=== PATIENT | male | born 1970 | race Caucasian/White ===

== ENCOUNTER 2025-01-23 15:44 | Inpatient (IN) | payer OTHER, SELFPAY ==
[2025-01-23] VITALS (7 sets, daily range): BP systolic 87–116; BP diastolic 51–81; BMI 27.7; BMI 27.5
--- NOTE | 2025-01-23 13:40 | ED.GENMED ---
History of Present Illness
General
Chief Complaint: Chest Pain
Time Seen by Provider: 01/23/25 13:37
History of Present Illness
History of Present Illness:
FOCUSED PAST MEDICAL HISTORY
- CAD, has had ND
REVIEW OF OLD RECORDS
- November 24, the patient was seen as a STEMI with stent placed in RCA and following day had stent placed in proximal LAD and EF at that time was 40%
Note:
CHIEF COMPLAINT(S)
Chest pain.
HISTORY OF PRESENT ILLNESS
The patient is a 54-year-old male with a past medical history significant for a myocardial infarction in 2014, during which stents were placed in the Right Coronary Artery (RCA) and Left Anterior Descending (LAD) artery. He presented today with the
onset of chest pain around 11:45 AM. The patient reports taking a nitrate at approximately 12:15 PM and lying down after administration. The first dose of nitrate did not alleviate symptoms, but the second dose provided significant relief. He
arrived at the hospital via ambulance and reports being pain-free at present. The patient did not experience diaphoresis but mentioned having a headache after nitrate administration. An initial Electrocardiogram (EKG) suggested a possible subtle
elevation in leads II and F, although these findings were deemed comparable to prior EKGs from March 2015. The EKG changes were not considered urgent enough for immediate intervention in the [employer] [facility]. Follow-up with cardiac enzymes and EKG is
planned if symptoms recur.
ADDITIONAL HISTORY OBTAINED FROM SOURCES OTHER THAN THE PATIENT
The patient arrived by ambulance, and EMS administered treatment before arrival, including aspirin.
EXTERNAL RECORDS REVIEWED
Review of EKGs from March 2015, which revealed consistent findings with no major changes when compared to the current presentation.
PHYSICAL EXAM
General: Alert, no acute distress. Very well-appearing
Skin: Warm, dry.
Head: Normocephalic, atraumatic.
Neck: Supple, trachea midline.
Eye, Ears, Nose, and Throat: Oral mucosa moist.
Cardiovascular: Normal peripheral perfusion, No edema. No chest wall pain
Respiratory: Respirations are non-labored.
Gastrointestinal: Abdomen nondistended.
Back: Normal range of motion, Normal alignment.
Musculoskeletal: Normal range of motion, normal strength.
Neurological: Alert and oriented to person, place, time, and situation, No focal neurological deficit observed.
Psychiatric: Cooperative, appropriate mood & affect.
PROBLEM LIST
Acute:
- Chest pain resolved
- Headache resolved
Chronic:
- Coronary artery disease with stent placement in 2014
PLAN
- Monitor patients symptoms, especially for any recurrence of chest discomfort.
- Repeat EKG and cardiac blood work if needed.
- Consult and communicate with cardiology for further evaluation and management.
DIFFERENTIAL DIAGNOSIS
The Differential Diagnosis includes, in no particular order and is not limited to:
1. Acute coronary syndrome
2. Myocardial ischemia
3. Angina
4. Gastroesophageal reflux disease (GERD)
5. Costochondritis
6. Pulmonary embolism
7. Aortic dissection
8. Pericarditis
9. Anxiety-related chest pain
10. Musculoskeletal chest pain
RADIOLOGY
-
EKG
- Sinus 82 there may be minimal if any ST elevation in leads II and F however this is not significantly changed in comparison to EKG from 03/28/2015
LABS
- Initial troponin less than 0.012
UPDATE
-SUMMARY OF ENCOUNTER
The patient, a 54-year-old male with a history of coronary artery disease and previous stent placement, presented to the emergency department with chest pain. After two doses of nitrate, the chest pain resolved. Dr. Morelos assessed the patient
and decided to admit him for further management, possibly with cardiac catheterization planned for the upcoming Saturday. By the time of discharge from the emergency department, the patients headache had also resolved, and he was pain-free.
DISPOSITION
Admit.
MANAGEMENT OF THE PATIENTS CARE WAS DISCUSSED WITH
The patient was seen by Dr. Morelos in the emergency department and accepted to his service for further management.
PLAN
The patient will be monitored for recurrent symptoms and is scheduled for a possible cardiac catheterization on Saturday.
MEDICAL DECISION MAKING
-Complexity of Data Reviewed: Chronic conditions affecting care [coronary artery disease with stent placement, myocardial infarction history].
DIAGNOSIS
1. Angina pectoris (ICD-10: I20.9)
2. Headache (ICD-10: R51.9)
3. History of acute myocardial infarction (ICD-10: I25.2)
Past History
Past History
ED Past Medical History: HTN, Hypercholesterolemia and Other (Diverticulitis)
ED Past Surgical History: Cardiac (STEMI X2 with 2 stents)
Social History
Tobacco: Non-smoker
Alcohol: Occasional
Drug: None
Personal:
Living: with family
Employment: Employed
Phy Exam
Physical Exam
Physical Exam:
See HPI
Scores
Heart Score for Chest Pain Patients
STEMI patient?: Not applicable
Course
Orders/Labs/Results
Orders:
Orders
01/23/25
Electrocardiogram (*1) Stat
Reason for Study: Chest Pain
Comment: DONE NO ORDER ENTERED
Electrocardiogram (*1) Stat
Reason for Study: Chest Pain
Comment: DONE NO ORDER ENTERED
01/23/25 13:15
Cardiac Monitoring- Treatment ONCE
IV Insert/Care/Rem.- Treatment PRN
01/23/25 13:28
Complete Blood Count/With Diff Urgent
Comprehensive Metabolic Panel Urgent
Troponin I Urgent
01/23/25 14:17
Admit Patient As Directed
Co-Sign Provider:
Level of Care: Inpatient admission
Assign to:: IVU
Physician / Group: David Morelos cardiology
Diagnosis: Unstable angina
Reason for Hospitalization: Unstable angina
Expected length of stay greater than two midnights?: Yes
ELOS- Estimated Length of Stay in days: 3
I certify the patient meets the requirements for IP care: Yes
Reason for Overnight Stay: Standard of Care
Code Status As Directed
Resuscitation Status: Full Code
Heparin 4,000 units IV NOW STA
01/23/25 14:18
Activity As Directed
Activity Level: Bedrest
INT (Intravenous Needle Therapy) As Directed
Comment: maintain peripheral IV access
Intake/ Output As Directed
Frequency: q12h
Vital Signs As Directed
Frequency: q4h
Weight As Directed
Frequency: Daily
Type of Scale: Standing Scale
01/23/25 14:20
PRN Pain Medication Management As Directed
May give lesser potent ordered pain med per pt: Yes
preference::
Protocol:: Medication orders for pain may be administered in a
manner that supports deferring to patient preference
when the pt is:
- Requesting an ordered lesser potent pain medication.
Least to most potent pain medications are defined
as: acetaminophen < NSAID < tramadol < opioids
(morphine, oxycodone, hydromorphone).
- Requesting a lesser dose of the same medication IF
ORDERED.
- Requesting a less intrusive route of administration
if both routes are prescribed by the provider (PO <
IV).
01/23/25 14:21
Echo 2D MMode Color/Doppler Routine
Reason for Study: chest pain
01/23/25 14:22
Complete Blood Count/No Diff Urgent
Glycohemoglobin (HgbA1c) Routine
PTT Urgent
Comment: Baseline if not already collected
Heparin Protocol- PTT Orders As Directed
PTT per Heparin protocol: -Obtain CBC and baseline PTT - if not already collected.
-Obtain PTT 6 hours from start of infusion. Then, every 6 hours until 2 consecutive
PTT's are therapeutic. Then, PTT Daily.
-With each rate change, obtain PTT every 6 hours until 2 consecutive PTT's are
therapeutic. Then, PTT Daily.
Notify MD As Directed
Notify physician if: Call provider for further orders if PTT is greater than or equal to 200 per heparin
infusion protocol.
01/23/25 14:30
Troponin I Q3H
Comment: at admit & Q3H for 3 total including ED draws, obtain ECG with each level
Heparin 61897 Units/250 ml 25,000 units in 250 ml IV PER PROTOCOL
Weight to be used for heparin protocol in kilograms (kg):: 89.9
Protocol:: Cardiac Tx/Acute Coronary
PTT Goal Range to be used:: PTT 73 to 111 seconds
Order type:: Initial
INITIAL Infusion Dose (UNITS/KG/hr) & then follow protocol:: 15 units/kg/hr
Infusion Dose in UNITS/hr & then follow protocol (UNITS/hr):: 1,350
INFUSION RATE in mL/hr & then follow protocol (mL/hr):: 13.5
PTT less than or equal to 64 seconds:: Increase rate by 200 units/hr (+ 2 mL/hr)
PTT 64.1 to 72.9 seconds:: Increase rate by 100 units/hr (+ 1 mL/hr)
PTT 73 to 111 seconds:: Target Range. No change in rate.
PTT 111.1 to 130.9 seconds:: Decrease rate by 100 units/hr (- 1 mL/hr)
PTT 131 to 199.9 seconds:: HOLD for 1 hr. Then decrease rate by 200 units/hr (- 2 mL/hr)
PTT greater than or equal to 200 seconds:: HOLD for 2 hrs & Notify Provider. Then decrease by 200 units/hr (-
2 mL/hr)
Lab follow-up:: Each change, PTT q6h until 2 consecutive are therapeutic. Then PTT
daily.
01/23/25 Dinner
Cholesterol Lowering
Cholesterol Lowering: Sodium, 2 Gram
Flush (0.9% Sodium Chloride) [Flush (Nss)] See Dose Instructions IV PER PROTOCOL
01/23/25 17:30
Troponin I Q3H
Comment: at admit & Q3H for 3 total including ED draws, obtain ECG with each level
01/23/25 18:00
Atorvastatin [Lipitor] 20 mg PO QPM
01/24/25 06:00
Electrocardiogram (*1) IN AM
Reason for Study: Chest Pain
Comment: at admission and Q3H for total of 3, to be done with each troponin
Complete Blood Count/No Diff IN AM
Comprehensive Metabolic Panel IN AM
01/24/25 08:00
Aspirin Chewable [Low Strength Aspirin] 81 mg PO DAILY
Metoprolol Xl [Toprol Xl] 50 mg PO DAILY
01/25/25 06:00
Electrocardiogram (*1) IN AM
Reason for Study: Chest Pain
Comment: at admission and Q3H for total of 3, to be done with each troponin
Complete Blood Count/No Diff IN AM
Complete Blood Count/No Diff Q2D
Comment: Notify MD if platelet count is <130,000 or decreases by 50% from baseline
Comprehensive Metabolic Panel IN AM
01/26/25 06:00
Electrocardiogram (*1) IN AM
Reason for Study: Chest Pain
Comment: at admission and Q3H for total of 3, to be done with each troponin
Complete Blood Count/No Diff IN AM
Comprehensive Metabolic Panel IN AM
01/27/25 06:00
Complete Blood Count/No Diff IN AM
Complete Blood Count/No Diff Q2D
Comment: Notify MD if platelet count is <130,000 or decreases by 50% from baseline
Comprehensive Metabolic Panel IN AM
01/29/25 06:00
Complete Blood Count/No Diff Q2D
Comment: Notify MD if platelet count is <130,000 or decreases by 50% from baseline
01/31/25 06:00
Complete Blood Count/No Diff Q2D
Comment: Notify MD if platelet count is <130,000 or decreases by 50% from baseline
02/02/25 06:00
Complete Blood Count/No Diff Q2D
Comment: Notify MD if platelet count is <130,000 or decreases by 50% from baseline
02/04/25 06:00
Complete Blood Count/No Diff Q2D
Comment: Notify MD if platelet count is <130,000 or decreases by 50% from baseline
02/06/25 06:00
Complete Blood Count/No Diff Q2D
Comment: Notify MD if platelet count is <130,000 or decreases by 50% from baseline
02/08/25 06:00
Complete Blood Count/No Diff Q2D
Comment: Notify MD if platelet count is <130,000 or decreases by 50% from baseline
Abnormal Lab Results
01/23/25
13:28
WBC 11.0 H 10^3/uL
(4.8-10.8)
Abs Immat Gran (auto) 0.1 H 10^3/uL
(0-0.05)
Absolute Neuts (auto) 8.2 H 10^3/uL
(1.4-6.5)
Absolute Monos (auto) 0.9 H 10^3/uL
(0.1-0.6)
Lymphocytes % 15.3 L %
(20.5-51.1)
BUN 21 H mg/dl
(9-20)
01/23/25 13:28
Vital Signs
Initial and Last Documented VS:
Initial Vital Signs
Pulse Resp Pulse Ox
95 16 100
01/23/25 13:16 01/23/25 13:16 01/23/25 13:16
Last Documented Vital Signs
Pulse Resp Pulse Ox
95 16 100
01/23/25 13:16 01/23/25 13:16 01/23/25 13:43
*Pulse Oximetry
SaO2: 100
Oxygen Mode of Delivery: Room air
Patient hypoxic: no
*Critical Care Note
Total Time (30-74mins, 75-104mins- exclusive of procedures): Not Applicable
ED Attending Note
-
Portions of this chart may have been created with voice recognition software.� Occasional wrong word or��sound alike� substitutions may have occurred due to the inherent limitations of voice recognition software.
Discharge Plan
Departure
Patient Disposition: Admit
Date of Disposition: 01/23/25
Time of Disposition: 14:43
Presentation/result/management discussed w/ accepting MD/DO: dr morelos
Discharge Problem:
Chest pain
Prescriptions:
No Action
aspirin 81 MG tablet,chewable
81 mg PO DAILY Qty: 0 0RF
metoprolol succinate 50 MG tablet extended release 24 hr
50 mg PO DAILY Qty: 90 3RF
lisinopril 10 mg Tablet
10 mg PO DAILY
rosuvastatin [Crestor] 20 mg Tablet
20 mg PO DAILY
Interventions
Interventions:
*Risk Screen - Suicide Last Done: 01/23/25 13:16
*General Assessment Last Done: 01/23/25 13:31
*Neglect/Abuse Screening Last Done: 01/23/25 13:16
*ED- Fall Risk Assessment Last Done: 01/23/25 13:31
*ED COVID-19 Vaccine History Last Done: 01/23/25 13:31
ED- Cardiac Assessment Last Done: 01/23/25 13:31
Discharge Date and Time
Print Language: LAO
[2025-01-23 13:47] LABS: Hematocrit 43.5 % (39.0-52.0); Hemoglobin 14.8 g/dL (13.0-18.0); Mean Corp Hgb Conc. 34.0 g/dL (33.0-37.0); Mean Corpuscular Volume 80.7 fL (80.0-94.0); Nucleated Red Blood Cells % 0 % (-); Platelet Count 276 10^3/uL (130-400); Red Cell Dist. Width 12.9 % (11.5-14.5)
[2025-01-23 14:05] LABS: ALT (SGPT) 23 U/L (0-50); AST (SGOT) 20 U/L (17-59); Albumin 4.6 g/dl (3.5-5.0); Alkaline Phosphatase 44 U/L (38-126); Blood Urea Nitrogen 21 mg/dl (9-20); Calcium 10.0 mg/dl (8.4-10.2); Carbon Dioxide 23 mmol/L (22-30); Chloride 107 mmol/L (98-107); Estimated Creatinine Clearance 77 ml/min; Glucose 89 mg/dl (70-99); Potassium 4.2 mmol/L (3.5-5.1); Sodium 139 mmol/L (135-145); Total Protein 7.1 g/dl (6.3-8.2); eGFR > 60.00
[2025-01-23 14:10] LABS: Troponin I < 0.012 ng/ml
--- NOTE | 2025-01-23 14:34 | CON.CAR ---
Consultation
Consultation Request
Date/Time Consultation Requested: January 23 2025 1 PM
Date/Time Consultation Performed: January 23, 2025 2:30 PM
Requesting Provider: Emergency room
Performing Provider: David Morelos
Reason for Consultation: Chest pain
Medical History
-
Chief Complaint: Chest pain
History of Present Illness:
54-year-old male with past medical history of CAD status post PCI to mid RCA March 2015 and proximal LAD in March 2015, dyslipidemia, hypertension who is here for evaluation of chest pain. He tells me that he went on his usual walk and had
felt okay. However, when he came home maybe about an hour later he developed substernal chest pain. This was the same pain associated when he needed previous PCI. He initially took a nitroglycerin with no relief of chest pain. He then called 911
they gave him a second nitroglycerin and became chest pain-free. In the emergency room labs including troponin are normal. His EKG shows normal sinus rhythm. Given his significant history this is concerning for possible unstable angina. We will
trend troponins and EKG and plan on coronary angiography on Saturday unless the need arises sooner.
Past Medical History
Past Medical History: CAD, HTN and RI
Social History
Tobacco: Non-Smoker
Alcohol: Other (Minimal)
Drug: None
Personal:
Living: With Family
Employment: Employed
Family History
Family History: Early CAD and CAD
Allergies / Home Medications
Allergy/AdvReac Type Severity Reaction Status Date / Time
No Known Allergies Allergy Verified 01/23/25 13:16
�Medication �Instructions �Recorded �Confirmed �Type
aspirin 81 mg chewable tablet 81 mg PO DAILY ##0 03/29/15 01/23/25 Rx
metoprolol succinate 50 mg 50 mg PO DAILY #90 tabs 03/29/15 01/23/25 Rx
tablet,extended release 24 hr
lisinopril 10 mg tablet 10 mg PO DAILY 01/23/25 01/23/25 History
rosuvastatin 20 mg tablet (Crestor) 20 mg PO DAILY 01/23/25 01/23/25 History
Review of Systems
-
All other systems: Negative unless noted
Physical Exam
Vital Signs
Pulse Resp Pulse Ox
95 16 100
01/23/25 13:16 01/23/25 13:16 01/23/25 13:43
Lab Results
01/23/25 13:28
Troponin I < 0.012 ng/ml 01/23/25 13:28
Physical Exam
General: Well Developed, Well Nourished and No Apparent Distress
HEENT: Normocephalic
Respiratory: Clear and Non Labored Respirations
Cardiac: S1/S2 and Regular Rhythm
GI: Soft
Skin: Warm and Dry
Neuro: AO x 3
Psych: Calm
Impression / Plan
-
I/P: 54-year-old male with past medical history of CAD status post PCI to RCA and LAD in March 2015, hypertension, dyslipidemia who is here for likely unstable angina.
Unstable angina
- Heparin drip
- Aspirin 81 mg daily
- Continue statin
- Update echo
- Coronary angiography on Saturday with n.p.o. after midnight on Saturday
Hypertension
- Continue lisinopril and metoprolol
Full code
Data Reviewed
-
EKG: Tracing Personally Visualized and interpreted (Sinus rhythm)
Medical Tests (Nuc Med, Echo etc): Report Reviewed by me
Labs: Labs Reviewed by me
[2025-01-23] MEDS: HEPARIN 4000 UNITS IV (15:01)
[2025-01-23] MEDS: HEPARIN 25000 UNITS/250 ML IV (15:02)
[2025-01-23 15:05] LABS: APTT 27.3 Sec (23.4-35.0)
[2025-01-23 15:23] LABS: Troponin I < 0.012 ng/ml
--- NOTE | 2025-01-23 15:35 | EDRN ---
This RN gave report to [facility] flight RN Florence Alonso. THe flight crew arrived just as this RN was going to start the ordered 400 mL IV bolus, it was tubed and ready to water softener service supervisor but the flight team uses a different set up and they got their IV pump and
hung the 400 mL bolus to be given in transit. ABG was completed and Florence took pix of all labs which she sent to [facility].
--- NOTE | 2025-01-23 16:46 | EDRN ---
Report called to Mario GA at this time.
--- NOTE | 2025-01-23 18:00 | PTCARENOTE ---
Received patient from ED via stretcher accompanied by ED RN. Patient ambulated self to bathroom and bed without difficulty. Nursing assessment completed and as documented at this time. Heparin gtt infusing at 1350 units/hr via R AC PIV, next PTT at
2100. Oriented to room, instructed use of call rodriguez and within reach, VSS, care ongoing.
[2025-01-23 18:15] LABS: Hematocrit 41.5 % (39.0-52.0); Hemoglobin 14.1 g/dL (13.0-18.0); Mean Corp Hgb Conc. 34.0 g/dL (33.0-37.0); Mean Corpuscular Volume 80.4 fL (80.0-94.0); Platelet Count 273 10^3/uL (130-400); Red Cell Dist. Width 12.9 % (11.5-14.5)
[2025-01-23 19:42] LABS: Troponin I < 0.012 ng/ml
[2025-01-23] MEDS: TYLENOL 650 MG PO (20:55)
[2025-01-23 21:42] LABS: APTT 80.1 Sec (23.4-35.0)
[2025-01-24 03:50] VITALS: BP 98/65
[2025-01-24 03:57] LABS: Hematocrit 42.0 % (39.0-52.0); Hemoglobin 13.9 g/dL (13.0-18.0); Mean Corp Hgb Conc. 33.1 g/dL (33.0-37.0); Mean Corpuscular Volume 81.7 fL (80.0-94.0); Platelet Count 224 10^3/uL (130-400); Red Cell Dist. Width 13.1 % (11.5-14.5)
[2025-01-24 04:03] LABS: APTT 75.9 Sec (23.4-35.0)
--- NOTE | 2025-01-24 04:09 | PTCARENOTE ---
Pt NSR on monitor. VSS Denies chest pain. C/o headache PRN Tylenol given. Heparin gtt per order. Pt independent in the room.
[2025-01-24 04:17] LABS: ALT (SGPT) 20 U/L (0-50); AST (SGOT) 17 U/L (17-59); Albumin 4.0 g/dl (3.5-5.0); Alkaline Phosphatase 44 U/L (38-126); Blood Urea Nitrogen 16 mg/dl (9-20); Calcium 8.9 mg/dl (8.4-10.2); Carbon Dioxide 22 mmol/L (22-30); Chloride 110 mmol/L (98-107); Estimated Creatinine Clearance 102 ml/min; Glucose 110 mg/dl (70-99); Potassium 4.1 mmol/L (3.5-5.1); Sodium 138 mmol/L (135-145); Total Protein 6.1 g/dl (6.3-8.2); eGFR > 60.00
[2025-01-24 08:04] VITALS: BP 120/81
[2025-01-24] MEDS: LOW STRENGTH ASPIRIN 81 MG PO (08:20)
[2025-01-24] MEDS: TOPROL XL 50 MG PO (08:20)
[2025-01-24] MEDS: LIPITOR 20 MG PO (08:20)
[2025-01-24 08:52] LABS: Glycohemoglobin (HgbA1c) 5.6 % (4.0-5.6)
[2025-01-24] MEDS: HEPARIN 25000 UNITS/250 ML IV (10:05)
--- NOTE | 2025-01-24 11:15 | PTCARENOTE ---
Heparin gtt infusing at 13.5 ml/hr. Pt has no complaints CP/discomfort/sob at this time. Plan of care reviewed w/ pt and verbalizes understanding. Pt aware of NPO status at midnight for cath quintin.
[2025-01-24 11:57] VITALS: BP 116/84
--- NOTE | 2025-01-24 13:42 | W.PN.CD ---
Today's Communication / Plan
-
NPO after midngiht
cont meds
Impression / Plan
-
I/P: 54-year-old male with past medical history of CAD status post PCI to RCA and LAD in March 2015, hypertension, dyslipidemia who is here for likely unstable angina.
Unstable angina
- Heparin drip
- Aspirin 81 mg daily
- Continue statin
- Update echo
- Coronary angiography on Saturday with n.p.o. after midnight on Saturday
- trops neg
Hypertension
- Continue lisinopril and metoprolol
Full code
Physical Exam
Vital Signs/Labs
Vital Signs
Temp Pulse Resp BP Pulse Ox
98.7 F 69 20 116/84 100
01/24/25 11:57 01/24/25 12:15 01/24/25 11:57 01/24/25 11:57 01/24/25 11:57
01/23/25 01/24/25 01/25/25
06:59 06:59 06:59
Actual Weight 197 lb 1.492 oz
01/24/25 03:41
01/24/25 03:41
APTT 75.9 Sec (23.4-35.0) H 01/24/25 03:41
LAB Results
01/23/25 01/23/25 01/23/25
13:28 14:43 17:33
Troponin I < 0.012 < 0.012 Cancelled
01/23/25
18:57
Troponin I < 0.012
Physical Exam
Constitutional: No acute distress and Comfortable
EENT: Anicteric
Cardiovascular: Rhythm & rate is regular and Pedal edema is absent
Respiratory: Respiratory effort normal and Lungs clear to auscul.
GI: Soft
Neuro/Psych: AO x 3
Data Reviewed
-
Date of Service: January 24, 2025
Medical Decision Making: Reviewed Test Results
EKG: Tracing Personally Visualized and interpreted (sr)
Echo: Report Reviewed by me
Labs: Labs Reviewed by me
[2025-01-24 15:56] VITALS: BP 104/71
[2025-01-24 18:36] VITALS: BP 114/80
--- NOTE | 2025-01-24 21:44 | PTCARENOTE ---
Patient received at change of shift resting in the bed. Denies chest pain or pressure, both at rest and while ambulating. Denies feeling lightheaded or dizzy, denies feeling SOB. Heparin gtt infusing as ordered. Sinus rhythm on telemetry. Oxygen
saturation 93-98% on room air. Plan of care discussed including NPO status at midnight. Call rodriguez within reach. Care ongoing.
[2025-01-24 23:01] VITALS: BP 103/67
[2025-01-25] VITALS (9 sets, daily range): BP systolic 101–118; BP diastolic 63–84; BMI 26.9
[2025-01-25] MEDS: HEPARIN 25000 UNITS/250 ML IV (03:27)
[2025-01-25 03:52] LABS: Hematocrit 40.7 % (39.0-52.0); Hemoglobin 13.7 g/dL (13.0-18.0); Mean Corp Hgb Conc. 33.7 g/dL (33.0-37.0); Mean Corpuscular Volume 81.9 fL (80.0-94.0); Platelet Count 233 10^3/uL (130-400); Red Cell Dist. Width 12.9 % (11.5-14.5)
[2025-01-25 04:01] LABS: APTT 84.0 Sec (23.4-35.0)
[2025-01-25 04:14] LABS: ALT (SGPT) 19 U/L (0-50); AST (SGOT) 18 U/L (17-59); Albumin 4.0 g/dl (3.5-5.0); Alkaline Phosphatase 48 U/L (38-126); Blood Urea Nitrogen 12 mg/dl (9-20); Calcium 9.1 mg/dl (8.4-10.2); Carbon Dioxide 23 mmol/L (22-30); Chloride 108 mmol/L (98-107); Estimated Creatinine Clearance 102 ml/min; Glucose 102 mg/dl (70-99); Potassium 3.9 mmol/L (3.5-5.1); Sodium 138 mmol/L (135-145); Total Protein 6.2 g/dl (6.3-8.2); eGFR > 60.00
--- NOTE | 2025-01-25 08:08 | W.PN.CD ---
Today's Communication / Plan
-
echo
cath
Impression / Plan
-
I/P: 54-year-old male with past medical history of CAD status post PCI to RCA and LAD in March 2015, hypertension, dyslipidemia who is here for likely unstable angina.
Unstable angina
- Heparin drip, cath today
- Aspirin 81 mg daily
- Continue statin, update lipid panel
- Update echo
- Coronary angiography on Saturday with n.p.o. after midnight on Saturday
- trops neg
Hypertension
- Continue metoprolol
-Lisinopril has been on hold, home bp log reviewed, will need to add back at home
IPF: given CAD, BMi 27 on arrival
-will begin GLP1-RA as op, I prefer Mounjaro
Full code
Physical Exam
Vital Signs/Labs
Vital Signs
Temp Pulse Resp BP Pulse Ox
98.3 F 61 14 101/63 95
01/25/25 07:04 01/25/25 07:04 01/25/25 07:04 01/25/25 07:04 01/25/25 07:04
01/24/25 01/25/25 01/26/25
06:59 06:59 06:59
Actual Weight 197 lb 1.492 oz 192 lb 10.944 oz
01/25/25 03:24
01/25/25 03:24
APTT 84.0 Sec (23.4-35.0) H 01/25/25 03:24
LAB Results
01/23/25 01/23/25 01/23/25
13:28 14:43 17:33
Troponin I < 0.012 < 0.012 Cancelled
01/23/25
18:57
Troponin I < 0.012
Physical Exam
Constitutional: No acute distress
Cardiovascular: Rhythm & rate is regular, Pedal edema is absent, JVD pressure is normal, Systolic murmur absent and Diastolic murmur absent
Respiratory: Respiratory effort normal, Lungs clear to auscul., Wheeze Absent, Crackles Absent and Rhonchi Absent
GI: Soft
Neuro/Psych: AO x 3
Data Reviewed
-
Date of Service: January 25, 2025
EKG: Other (tele NSR)
[2025-01-25] MEDS: LOW STRENGTH ASPIRIN 81 MG PO (08:19)
[2025-01-25] MEDS: TOPROL XL 50 MG PO (08:19)
[2025-01-25] MEDS: LIPITOR 20 MG PO (08:19)
[2025-01-25 09:08] LABS: HDL Cholesterol 38 mg/dl; LDL Cholesterol, Calculated 43 mg/dl; Very Low Density Lipoprotein 31 mg/dl (0-30)
--- NOTE | 2025-01-25 14:30 | PTCARENOTE ---
Pt taken to card cardiac cath lab radiology technologist for cath, report given to
--- NOTE | 2025-01-25 15:53 | ITS.CL.CATH ---
Addendum entered and electronically signed by Nick Roche DO 01/25/25 17:49:
Resident Physician Chelly Dash M.D. was present and assisted during the procedure. I was present for and performed all of the critical portions of the procedure.
Original Note:
Coating Machine Operator Helper - Catheterization
Cardiac Catheterization
Procedure Report:
CARDIAC CATHETERIZATION REPORT
Date of Procedure: 01/25/2025
Referring: David Morelos M.D.
INDICATION: Known coronary artery disease, concern for unstable angina.
PROCEDURE:
1. Left heart catheterization.
2. Coronary angiography.
A total of 41 minutes of procedural/moderate sedation was utilized. An independent medical cost consultant was present to assist with and help manage the patient's level of consciousness and physiologic status.
ACCESS:
1. 6 [place] right radial artery using a modified Seldinger technique.
CATHETERS:
1. 5 [place] JR4.
2. 5 [place] JL 3.5.
HEMODYNAMIC DATA
Weight (kg): 89.4
AO (s/d/x, mmHg): 110/78/93
LV (s/x mmHg): 110/21
LEFT VENTRICULOGRAPHY: Not performed.
CORONARY ANGIOGRAPHY
Dominance: Right.
Left Main: Normal size, bifurcating vessel. There is no coronary artery disease.
LAD: Normal size vessel giving rise to 3 diagonals. A patent stent is visible in the proximal LAD with no evidence of in-stent restenosis. There is an 90% lesion in the ostium of the jailed D1 with BENNY-3 flow.
Ramus: Congenitally absent.
Circumflex: Large size, nondominant vessel giving rise to 2 obtuse marginals. OM1 is a small size vessel supplying the upper part of the lateral wall. OM 2 is a much more substantial vessel with several daughter branches. There is a 20-30%
lesion in the midportion of OM 2. A small, 1 mm daughter branch shows a 90% lesion in its ostium, there was clearly not amenable to intervention.
RCA: Large size, dominant vessel with a large posterolateral arcade. There is a 30% lesion in the mid vessel. A patent stent is visible in the distal RCA with no evidence of in-stent restenosis.
INTERVENTION(S)
None.
Closure Device: Vascular band.
Radiation (mGy): 371
DAP (cm2.Gy): 18.5
Fluoroscopy time (minutes): 3.8
CONCLUSIONS
1. Right dominant circulation with a patent stent in the distal RCA, a 30% lesion in the mid RCA, a patent stent in the proximal LAD with a 90% lesion in the ostium of a jailed D1 with BENNY-3 flow, unchanged from 2015, a 20-30% lesion in the
midportion of OM 2 and a small, 1 mm daughter branch off of OM 2 with a 90% lesion in its ostium, unamenable to intervention.
2. Moderately elevated filling pressures (LVEDP = 21 mmHg at 89.4 kg).
RECOMMENDATIONS:
1. Expectant management after cardiac catheterization via right radial approach.
2. Limited weight bearing on the right wrist for one week.
3. Continue aggressive secondary prevention with high-dose, high potency statin. Goal LDL <55.
4. Start furosemide 40 mg p.o. daily as an outpatient with BMP in 1 week to monitor renal function.
5. Start GDMT/OMT as hemodynamics will tolerate, including SGLT2i.
Copy to: Donna Biggs M.D., David Morelos M.D., Alber Bravo D.O., Hernando Lott M.D.
Nick Roche, DO, FACC, FACP
[2025-01-25] MEDS: TYLENOL 650 MG PO (16:06)
--- NOTE | 2025-01-25 16:21 | CM ---
Reviewed chart, Met with and Mrs. Chin to review discharge plans. He states prior to admission he resides with his spouse in a two story home without any steps to enter. He states he has a full flight of steps to get to bedroom/full
bathroom. He states he has a powder room on the first floor. He states prior to admission he was independent with ambulation and adls. He states he does not any DME in the home. He states he does have a prescription plan and uses [facility].
Medical work-up in progress. The discharge plan is to return home with his spouse when medically stable.
--- NOTE | 2025-01-25 16:34 | PTCARENOTE ---
Rec'd Pt returned from card cath, A,A+OX3, R radial band intact, Pt c/o R wrist pain, R fingers and thumb dusky. label maker nurse removed 4 ml from the band, Pt got some pain relief after that. Currently O2 sat 100 % on R finger. R arm elevated on
pillow for comfort.
--- NOTE | 2025-01-25 20:00 | W.DS.TRANS ---
DC Summary - Television Equipment Operator
-
Discharge Instructions:
Discharge Diagnosis/Procedures Chest pain
Coronary artery disease
Procedure: Cardiac catheterization 01/25/2025
Diet Low Cholesterol
Activity No strenuous activity
Additional Activity See attached instructions.
Driving Restrictions No driving for 24 hours
Bathing Restrictions None
Specialty Instructions Weigh Daily
Instructions:
Stand-Alone Forms: DC Instructions- Cath/EP Lab
Changes to Home Medications: Yes
Discharge Medications:
DC Medications w/original date entered in [facility]
rosuvastatin 20 mg tablet (Crestor) 20 mg PO DAILY High Cholesterol 01/23/25
aspirin 81 mg chewable tablet 81 mg PO DAILY Blood Clot Prevention/Tx 01/24/25
metoprolol succinate 50 mg tablet,extended release 24 hr 50 mg PO DAILY Blood Pressure 01/24/25
amlodipine 2.5 mg tablet 2.5 mg PO DAILY #30 tabs 01/25/25
dapagliflozin propanediol 10 mg tablet (Farxiga) 10 mg PO DAILY #30 tabs 01/25/25
pantoprazole 40 mg tablet,delayed release (Protonix) 40 mg PO DAILY #30 tabs 01/25/25
Home Medication Changes
Stopped: Lisinopril
New: Amlodipine, Farxiga, Protonix
Pending Results: No
== END 2025-01-25 20:00 | disposition home or self-care (01) | DRG 287 ==
LOC: IVU 15:44
PROVIDERS: Emergency Medicine; Internal Medicine Cardiovascular Disease; Nurse Practitioner Gerontology; ADMITTING PHYSICIAN Internal Medicine Cardiovascular Disease; EMERGENCY PHYSICIAN Emergency Medicine; FAMILY PHYSICIAN Family Medicine
PROC: B2111ZZ Fluoroscopy of Multiple Coronary Arteries using Low Osmolar Contrast (ICD-10-PCS; 2025-01-25)
PROC: 4A023N7 Measurement of Cardiac Sampling and Pressure, Left Heart, Percutaneous Approach (ICD-10-PCS; 2025-01-25)
DX: I25.110 Atherosclerotic heart disease of native coronary artery with unstable angina pectoris (principal); E78.00 Pure hypercholesterolemia, unspecified; I10 Essential (primary) hypertension; R51.9 Headache, unspecified; I25.2 Old myocardial infarction; Z95.5 Presence of coronary angioplasty implant and graft; Z79.82 Long term (current) use of aspirin; Z87.19 Personal history of other diseases of the digestive system; Z79.84 Long term (current) use of oral hypoglycemic drugs
CPT/HCPCS: 71045; 80053; 80061; 83036; 83880; 84484; 85025; 85027; 85730; 93005; 93306; 93458; 96365; 96366; 99152; 99153; 99284; C1894; Q9967